=== PATIENT | female | born 1980 | race African-American/Black ===

== ENCOUNTER 2020-08-08 13:57 | Emergency (ER) | payer SELFPAY ==
[~2020-08-08] VITALS: Ht 170.2 cm; Wt 72.0 kg
[2020-08-08] MEDS ORDERED: PREDNISONE 20MG TABLET PO ONE (16:30)
[2020-08-08] MEDS ORDERED: ALBUTEROL 6.7GM HFA INHALER ORI ONE (16:30)
[2020-08-08 17:00] VITALS: BP 137/101
== END 2020-08-08 18:30 | disposition home or self-care (01) ==
LOC: ER 14:06
DX: J45.901 Unspecified asthma with (acute) exacerbation (principal); I10 Essential (primary) hypertension; Z03.818 Encounter for observation for suspected exposure to other biological agents ruled out; Z98.51 Tubal ligation status
CPT/HCPCS: 71045; 87635; 99284; C9803; J7512